=== PATIENT | male | born 1970 | race Caucasian/White ===

== ENCOUNTER 2017-12-07 05:47 | Outpatient (CLI) | payer BC ==
[2017-12-07] MEDS ORDERED: LIDOCAINE 2% 20 ML VIAL. (06:06)
[2017-12-07] MEDS ORDERED: IOHEXOL 300 MG/ML 100ML VIAL. (06:06)
[2017-12-07] MEDS ORDERED: fentaNYL PF VIAL 100 MCG/2 ML VIAL (06:50)
[2017-12-07] MEDS ORDERED: VERAPAMIL 5 MG/2 ML VIAL. (06:51)
[2017-12-07] MEDS ORDERED: HEPARIN for IV BOLUS 10,000 UNIT/10 ML VIAL. (06:51)
[2017-12-07] MEDS ORDERED: MIDAZOLAM HCL/PF 2 MG/2 ML VIAL. (06:51)
[2017-12-07] MEDS ORDERED: NITROGLYCERIN 200 MCG/2 ML SYRINGE FOR CATH/VASC LAB. (06:52)
[2017-12-07] MEDS ORDERED: BIVALIRUDIN 250 MG VIAL. IV (07:08)
[2017-12-07] MEDS: fentaNYL PF VIAL 100 MCG/2 ML VIAL IV (07:28)
[2017-12-07] MEDS: MIDAZOLAM HCL/PF 2 MG/2 ML VIAL. IV (07:28)
[2017-12-07] MEDS: VERAPAMIL 5 MG/2 ML VIAL. IART (07:29)
[2017-12-07] MEDS: NITROGLYCERIN 200 MCG/2 ML SYRINGE FOR CATH/VASC LAB. IART (07:29)
[2017-12-07] MEDS: LIDOCAINE 2% 20 ML VIAL. IJ (07:29)
[2017-12-07] MEDS: HEPARIN for IV BOLUS 10,000 UNIT/10 ML VIAL. IART (07:30)
== END 2017-12-07 09:56 | disposition home or self-care (01) ==
LOC: CCL 05:47
DX: I20.0 Unstable angina (principal); I50.1 Left ventricular failure, unspecified; I10 Essential (primary) hypertension; E78.5 Hyperlipidemia, unspecified; Z82.49 Family history of ischemic heart disease and other diseases of the circulatory system; Z79.899 Other long term (current) drug therapy; E66.9 Obesity, unspecified; Z68.39 Body mass index [BMI] 39.0-39.9, adult
CPT/HCPCS: 93458; 99152; 99153; C1769; C1892; J1644; J2250; J3010; J3490